=== PATIENT | female | born 1980 | race Caucasian/White ===

== ENCOUNTER 2019-07-14 09:12 | Emergency (ER) | payer OTHER, MEDICAID ==
[~2019-07-14] VITALS: Ht 167.6 cm; Wt 86.2 kg
[~2019-07-14 09:12] MED LIST: CLOTRIMAZOLE-745 GM VG; LEXAPRO 10 MG T10 MG PO; MACROBID 100 M100 M1 PO; SUBOXONE 8 MG-1 EAC1 SL; ULTRAM 50MG TAB50 MG PO; birth control
[2019-07-14] MEDS ORDERED: SUBOXONE 8 MG-1 EAC3 PO (09:27)
[2019-07-14] MEDS ORDERED: TAMIFLU75 MG PO (09:29)
[2019-07-14] MEDS ORDERED: TRAMADOL 50 MG50 MG PO (09:29)
[2019-07-14] MEDS ORDERED: ZOFRAN ODT4 MG PO (09:29)
[2019-07-14 09:41] VITALS: BP 142/83
== END 2019-07-14 09:41 | disposition home or self-care (01) ==
LOC: M.ERS 09:12
DX: J11.1 Influenza due to unidentified influenza virus with other respiratory manifestations (principal); F41.9 Anxiety disorder, unspecified; F17.210 Nicotine dependence, cigarettes, uncomplicated

== ENCOUNTER 2020-12-10 10:49 | Emergency (ER) | payer OTHER, MEDICAID ==
[~2020-12-10] VITALS: Ht 165.1 cm; Wt 90.7 kg
[~2020-12-10 10:49] MED LIST changes: +SUBOXONE 8 MG-1 EAC3 PO; +TAMIFLU75 MG PO; +TRAMADOL 50 MG50 MG PO; +ZOFRAN ODT4 MG PO
[2020-12-10 11:50] LABS: URINE BILIRUBIN NEGATIVE (Negative); URINE BLOOD NEGATIVE (Negative); URINE CLARITY CLEAR; URINE COLOR YELLOW; URINE GLUCOSE-RANDOM NEGATIVE (Negative); URINE KETONES NEGATIVE (Negative); URINE LEUKOCYTES-REFLEX NEGATIVE (Negative); URINE NITRITE-REFLEX NEGATIVE (Negative); URINE PROTEIN NEGATIVE (Negative); URINE UROBILINOGEN 0.2 E.U./dl (0.2-1.0)
[2020-12-10 11:52] LABS: ABSOLUTE EOSINOPHILS 0.3 thou/uL (0.0-0.7); ABSOLUTE LYMPHOCYTES 2.6 thou/uL (0.8-5.3); ABSOLUTE MONOCYTES 0.4 thou/uL (0.0-1.2); ABSOLUTE NEUTROPHILS 4.9 thou/uL (1.6-8.1); BASOPHILS 0.5 %; EOSINOPHILS 3.8 %; HEMATOCRIT 37.9 % (37.0-47.0); HEMOGLOBIN 12.5 gm/dL (12.0-15.0); LYMPHOCYTES 31.1 %; MCH 26.9 pg (26.0-34.0); MCV 81.6 fL (80.0-100.0); MONOCYTES 5.1 %; MPV 8.6 fl. (7.2-11.1); NUCLEATED RBCS 0 /100WBC; PLATELET COUNT* 345 thou/uL (150-400); POLYS 59.5 %; RBC 4.65 mil/uL (4.20-5.00); RDW-CV 15.3 % (10.5-14.5); WBC 8.3 thou/uL (4.0-11.0)
[2020-12-10 12:07] LABS: CREATININE 0.8 mg/dL (0.6-1.3); POTASSIUM 3.8 mmol/L (3.5-5.1)
[2020-12-10 12:12] LABS: ALBUMIN 3.8 g/dL (3.4-5.0); TOTAL BILIRUBIN 0.5 mg/dL (<0.1-1.0); TOTAL PROTEIN 8.2 g/dL (6.4-8.2)
[2020-12-10] MEDS ORDERED: ZOFRAN ODT4 MG PO (14:23)
[2020-12-10] MEDS ORDERED: IBUPROFEN 800800 M1 PO (14:23)
[2020-12-10] MEDS ORDERED: NORCO5 PO (14:23)
[2020-12-10 14:34] VITALS: BP 110/55
--- NOTE | 2020-12-10 15:33 | EKG ---
[place] [address] ELECTROCARDIOGRAM REPORT Name: RITIKAABBIE L Room: [facility]#: [id number] Admission: 12/10/20 Attend Phys: Discharge: 12/10/20 Date of : 78 Date of Service: 12/10/20 1331 Report #: [id number] THIS REPORT FOR: //name// [facility] ED Test Date: 2020-12-10 Test Time: 13:31:40 Pat Name: ABBIE YOST Department: Room: Gender: F Rn Production: : 1980 Requested By: Verna Navarro Order Number: [id number] MD: Cuauhtemoc España Measurements Intervals [place] Rate: 72 P: 60 ID: 153 QRS: 2 QRSD: 86 T: 57 QT: 437 QTc: 479 Interpretive Statements Sinus rhythm Ventricular premature complex Baseline wander in lead(s) I,III,aVR,aVL,aVF,V2,V4,V5,V6 Compared to ECG 03/16/2013 08:33:48 Ventricular premature complex(es) now present Electronically Signed On 12-10-2020 15:33:28 CDT by Cuauhtemoc España [email or web address] <ELECTRONICALLY SIGNED> By: Cuauhtemoc España MD, [facility] 12/10/20 1533 1331 1331 Cuauhtemoc España MD, [facility] /EPI
== END 2020-12-10 14:34 | disposition home or self-care (01) ==
LOC: M.ERS 10:49
PROVIDERS: Nurse Practitioner Family
DX: R10.11 Right upper quadrant pain (principal); F17.210 Nicotine dependence, cigarettes, uncomplicated; Z98.51 Tubal ligation status

== ENCOUNTER 2021-02-22 18:07 | Observation (INO) | payer OTHER, MEDICAID ==
[~2021-02-22] VITALS: Ht 165.1 cm; Wt 95.3 kg
[~2021-02-22 18:07] MED LIST changes: +IBUPROFEN 800800 M1 PO; +NORCO5 PO
[2021-02-22 18:25] VITALS: BP 127/87
[2021-02-22 21:53] LABS: URINE BLOOD NEGATIVE (Negative); URINE CLARITY CLEAR; URINE COLOR YELLOW; URINE GLUCOSE-RANDOM NEGATIVE (Negative); URINE KETONES TRACE (Negative); URINE LEUKOCYTES-REFLEX NEGATIVE (Negative); URINE NITRITE-REFLEX NEGATIVE (Negative); URINE PROTEIN TRACE (Negative); URINE SPECIFIC GRAVITY 1.025 (1.005-1.030); URINE UROBILINOGEN 0.2 E.U./dl (0.2-1.0)
[2021-02-22 21:55] LABS: URINE BILIRUBIN 1+ (Negative)
[2021-02-22 22:02] LABS: ICTOTEST (BILI CONFIRMATORY) Negative (Negative)
[2021-02-22 22:41] LABS: ABSOLUTE BASOPHILS 0.1 thou/uL (0.0-0.2); ABSOLUTE LYMPHOCYTES 1.3 thou/uL (0.8-5.3); ABSOLUTE MONOCYTES 0.5 thou/uL (0.0-1.2); ABSOLUTE NEUTROPHILS 10.8 thou/uL (1.6-8.1); BASOPHILS 0.6 %; EOSINOPHILS 0.2 %; HEMATOCRIT 40.5 % (37.0-47.0); HEMOGLOBIN 13.6 gm/dL (12.0-15.0); LYMPHOCYTES 10.4 %; MCH 27.1 pg (26.0-34.0); MCHC 33.7 g/dL (28.0-37.0); MCV 80.5 fL (80.0-100.0); MONOCYTES 4.1 %; MPV 8.4 fl. (7.2-11.1); NUCLEATED RBCS 0 /100WBC; PLATELET COUNT* 365 thou/uL (150-400); POLYS 84.7 %; RBC 5.03 mil/uL (4.20-5.00); RDW-CV 14.9 % (10.5-14.5); WBC 12.8 thou/uL (4.0-11.0)
[2021-02-22 22:48] LABS: CALCIUM 8.9 mg/dL (8.5-10.1); POTASSIUM 3.5 mmol/L (3.5-5.1)
[2021-02-22 22:53] LABS: ALBUMIN 4.3 g/dL (3.4-5.0); TOTAL BILIRUBIN 0.9 mg/dL (<0.1-1.0)
[2021-02-23 05:48] VITALS: BP 106/58
[2021-02-23 08:00] VITALS: BP 110/44
[2021-02-23 08:10] VITALS: BP 110/44
[2021-02-23 09:53] VITALS: BP 110/44
--- NOTE | 2021-02-23 17:06 | OP ---
[facility] [address] [place] [address] OPERATIVE REPORT Name: ABBIE YOST Room: [address] Carly#: [id number] Admission: 02/23/21 Attend Phys: Tao Clay Discharge: Date of : 78 Report #: [id number] THIS REPORT FOR: cc: MADELIN - No family physician/PCP FAM - No family physician/PCP Tao Clay MD ~ DATE OF SURGERY: 02/23/2021 PREOPERATIVE DIAGNOSIS: Acute appendicitis. POSTOPERATIVE DIAGNOSIS: Acute appendicitis. OPERATION: Laparoscopic appendectomy. SURGEON: Tao Clay MD. ANESTHESIA: General. ESTIMATED BLOOD LOSS: Minimal. SPECIMENS: Appendix. DESCRIPTION OF PROCEDURE: After informed consent was obtained, the patient was brought to the operating room and placed supine. SCDs were placed and working, preoperative antibiotics were administered, general anesthesia was induced. The abdomen was prepped and draped in the usual sterile fashion. A 5 mm incision was made in the left upper quadrant. A 5 mm trocar was placed under direct vision. Pneumoperitoneum was established. Left lower quadrant 5 mm trocar was placed. A right upper quadrant 10 mm trocar was placed. These were done under direct vision. The appendix was then grasped and retracted anteriorly. The mesoappendix was ligated using the LigaSure device. There was good hemostasis. Base of the appendix was then ligated using a PDS Endoloop. The appendix was cut with the LigaSure, placed into an Endopouch and removed. The ports were removed under direct vision. The fascia at the right upper quadrant was closed with a 0 Vicryl suture. Skin was then closed with 4-0 Monocryl. Incisions were dressed with Steri-Strips. COMPLICATIONS: None. DISPOSITION: The patient was taken to recovery in satisfactory condition. <ELECTRONICALLY SIGNED> By: Tao Clay MD 02/23/21 1706 0829 0838Tao Clay MD /nt
--- NOTE | 2021-02-28 11:09 | PATH ---
[address] [address] PATHOLOGY RPT PROCEDURE Name: ABBIE YOST Room: [address] Yarely Carroll#: [id number] Admission: 02/23/21 Date of : 78 Discharge: 02/23/21 Report #: [id number] Path Case #: [id number] L[facility] Accession Number: [id number] . 01 Material submitted: . appendix - APPENDIX . 01 Clinical history: . LAPAROSCOPIC APPENDECTOMY ACUTE APPENDICITIS . 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 - Acute appendicitis, periappendicitis and serositis. - See comment. . . 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 Histologic Type and Grade ___ G1, well-differentiated neuroendocrine tumor Mitotic Rate ___ Less than 2 mitoses/2 mm2 Ki-67 Labeling Index ___ Less than 3% . Tumor Extent ___ Invades the subserosa/mesoappendix without involvement of visceral peritoneum . Margins ___ Proximal margin: Involved by tumor ___ Radial or mesenteric margin: Uninvolved by tumor . Lymphovascular invasion: ___ Not identified . Perineural invasion ___ Not identified . [place] [address] PATHOLOGY RPT PROCEDURE Name: ABBIE YOST Cuca Room: [address] Yarely Carroll#: [id number] Admission: 02/23/21 Date of : 78 Discharge: 02/23/21 Report #: [id number] Path Case #: [id number] ___ No lymph nodes submitted or found . PATHOLOGIC STAGE CLASSIFICATION (pTNM, AJCC 8TH EDITION) Primary Tumor ___ pT3: Tumor more than 4 cm or with subserosal invasion or involvement of the mesoappendix Regional Lymph Nodes ___ pNX (Regional lymph nodes cannot be assessed) . Additional Pathologic Findings ___ Acute appendicitis (TAMELA/db; 02/27/2021) LBQ 02/27/2021 1549 Local . 02 Comment: The tumor is identified in the section of proximal appendix after trimming away the madonna and is therefore considered to be involved. Properly controlled immunohistochemical stains performed on A1 show the neoplastic cells to have the following results: . Synaptophysin: Positive Ki-67: Less than 2% . Discussed with Dr. Clay at approximately 1610 on 02/27/2021. A1 and A3 reviewed with Dr. Franky Alonso on 02/27/2021 who agrees with the diagnosis. (TAMELA/db; 02/27/2021) . 02 Electronically signed: . Geoff Esparza MD, Pathologist NPI- [id number] . 01 Gross description: . Fixative: Formalin Labeled: Appendix Appendix length: 6.5 cm Appendix diameter: 0.2-1.0 cm Mesoappendix: 0.8 cm Proximal margin: Stapled Serosa: Pale salinas to pink-salinas with a slight amount of overlying exudate Cut surface: Pinpoint to patent lumen Luminal diameter: Up to 0.2 cm Perforation: None identified Lesions/abnormalities: None identified . Proximal margin and bisected tip in cassette A1. Additional veterans contact representative cross-sections in cassette A2. ([facility]; 02/25/2021) [place] [address] PATHOLOGY RPT PROCEDURE Name: ABBIE YOST Room: [address] Nehemias.Maddie#: [id number] Admission: 02/23/21 Date of : 78 Discharge: 02/23/21 Report #: [id number] Path Case #: [id number] . After initial microscopic examination, the remainder of the appendix is submitted proximal to distal aspects in cassettes A3 through A5. (CAA; 02/26/2021) QAC/QAC 02/26/2021 1640 Local . 02 Pathologist provided ICD-10: C18.1, K35.80, K65.8 . 02 CPT . 614893, P88971, 231598 Specimen Comment: A courtesy copy of this report has been sent to [phone] Specimen Comment: Report sent to Performed at: [address], [place], [place] [address] MD Jose Peoples MD Phone: [phone] Performed at: 02 [facility] [address], [place], [place] [address] MD Geoff Esparza MD Phone: [phone]
== END 2021-02-23 17:04 | disposition home or self-care (01) ==
LOC: M.ERS 18:07 → M.TBA-ER 02-23 01:55
PROVIDERS: Personal Emergency Response Attendant; ADMIT Surgery; ATTEND Surgery
DX: K35.80 Unspecified acute appendicitis (principal); Z20.822 Contact with and (suspected) exposure to COVID-19; R11.2 Nausea with vomiting, unspecified; R19.7 Diarrhea, unspecified; F17.210 Nicotine dependence, cigarettes, uncomplicated; Z98.890 Other specified postprocedural states; Z79.899 Other long term (current) drug therapy

== ENCOUNTER 2021-05-17 05:30 | Inpatient (IN) | payer OTHER, MEDICAID ==
[~2021-05-17] VITALS: Ht 165.1 cm; Wt 95.3 kg
--- NOTE | ~2021-05-17 | OP ---
[facility] [address] [place] [address] OPERATIVE REPORT Name: ABBIE YOST Room: [place] [address] ADM IN M.R.#: [id number] Admission: 05/17/21 Attend Phys: Tyrone Blanchard Discharge: Date of : 78 Report #: [id number] THIS REPORT FOR: cc: FAM - No family physician/PCP FAM - No family physician/PCP Tao Clay MD ~ DATE OF SURGERY: 05/17/2021 PREOPERATIVE DIAGNOSIS: Appendiceal neuroendocrine tumor. POSTOPERATIVE DIAGNOSIS: Appendiceal neuroendocrine tumor. OPERATION: Laparoscopic right hemicolectomy. SURGEON: Tao Clay MD ANESTHESIA: General. ESTIMATED BLOOD LOSS: 20 mL SPECIMENS: Right hemicolectomy. DRAINS: None. DESCRIPTION OF PROCEDURE: After informed consent was obtained, the patient was brought to the operating room and placed supine. SCDs were placed and working, preoperative antibiotics were administered, general anesthesia was induced. The abdomen was prepped and draped in the usual sterile fashion. A 5 mm incision was made in the left upper quadrant. A 5 mm trocar was placed under direct vision. Pneumoperitoneum was established. Left lower quadrant 5 mm trocar was placed. She had adhesions to the anterior abdominal wall that were taken down with a 5 mm LigaSure device. I was then able to insert a 10 mm trocar above the umbilicus. The right colon was identified. It was grasped and retracted medially. I made an incision in the white line of Toldt. This allowed for medial mobilization of the right colon. The hepatic flexure was taken down with the LigaSure device. There was excellent hemostasis. The cecum was freed up and was also mobilized medially. At this point, the laparoscope was removed. I extended the supraumbilical incision approximately 5 cm superiorly. Fascia was incised. I was able to exteriorize the right colon through this incision after a wound protector was placed. The transverse colon was identified. It was stapled with a ADILENE blue load stapler approximately one-third [address] the way across the abdomen. The mesentery was then ligated using the LigaSure. The ileocolic vessels [place] [address] OPERATIVE REPORT Name: ABBIE YOST SONY Room: [address] IN [facility]#: [id number] Admission: 05/17/21 Attend Phys: Tyrone Blanchard Discharge: Date of : 78 Report #: [id number] a 3-0 silk suture. The 10 cm of the distal ileum were taken with the specimen. This was stapled off with a ADILENE blue load stapler as well. Specimen was then removed. A [id number] functional end-to-end anastomosis was created. The small bowel and colon were brought into apposition side to side, antiperistaltic. It was stapled with a ADILENE-75 stapler. I then stapled with the common enterocolostomy with a ADILENE blue load stapler as well. The anastomosis was placed back into the abdomen. The fascia was then closed with a running 0 PDS suture. Skin was closed with 4-0 Monocryl. Incisions were dressed with Steri-Strips and sterile gauze. Sterile dressings were applied. COMPLICATIONS: None. DISPOSITION: The patient was taken to recovery in satisfactory condition. By: 0917 0942Tao Clay MD /mony
[~2021-05-17 05:30] MED LIST changes: +NOHOMEMEDICATIONS
[2021-05-17 07:30] LABS: HEMOGLOBIN 12.8 gm/dL (12.0-15.0); MCH 26.6 pg (26.0-34.0); MCHC 33.6 g/dL (28.0-37.0); MCV 79.1 fL (80.0-100.0); MPV 9.1 fl. (7.2-11.1); RBC 4.8 mil/uL (4.20-5.00); WBC 8.3 thou/uL (4.0-11.0)
[2021-05-17 07:34] LABS: CALCIUM 8.9 mg/dL (8.5-10.1); POTASSIUM 3.6 mmol/L (3.5-5.1)
[2021-05-17 16:23] VITALS: BP 119/58
[2021-05-17 20:00] VITALS: BP 124/62
[2021-05-17 23:49] VITALS: BP 108/63
[2021-05-18 04:00] VITALS: BP 130/69
[2021-05-18 04:10] LABS: HEMATOCRIT 36.1 % (37.0-47.0); HEMOGLOBIN 11.6 gm/dL (12.0-15.0); MCH 26.2 pg (26.0-34.0); MCHC 32.2 g/dL (28.0-37.0); MCV 81.2 fL (80.0-100.0); MPV 9.2 fl. (7.2-11.1); RBC 4.44 mil/uL (4.20-5.00); RDW-CV 14.6 % (10.5-14.5); WBC 10.3 thou/uL (4.0-11.0)
[2021-05-18 04:40] LABS: CALCIUM 7.9 mg/dL (8.5-10.1); CREATININE 1.1 mg/dL (0.6-1.3); POTASSIUM 3.4 mmol/L (3.5-5.1)
--- NOTE | 2021-05-18 05:07 | NUR ---
ASSUMED PT CARE AT 1930. PT ALERT AND ORIENTED X4. STERI-STRIPS AND GAUZE TO ABDOMEN C/D/I. PT PAIN CONTOLLED WITH MORPHINE, NAUSEA WITH ZOFRAN AND ANXIETY WITH LORAZEPAM. PT REFUSED ENOXAPARIN. PT SLEPT WELL WHEN PAIN WAS CONTROLLED. CAMACHO TO DD DRAINING YELLOW URINE. CALL LIGHT IN REACH. HOURLY ROUNDING IN PROGRESS, WILL CONTINUE TO MONITOR.
[2021-05-18 08:00] VITALS: BP 122/69
[2021-05-18 08:58] LABS: MAGNESIUM 2.7 mg/dL (1.8-2.4)
[2021-05-18 16:19] VITALS: BP 116/62
[2021-05-18 19:45] VITALS: BP 99/43
--- NOTE | 2021-05-18 19:55 | NUR ---
PT UP TO BATHROOM WITH ASSISTANCE AFTER CATHETHER REMOVED. PT HAS IV FLUIDS INFUSING THROUGH LEFT WRIST SALINE LOCK . VSS AFEBRILE. WILL CONTINUE TO MONIIOR
[2021-05-19 04:11] VITALS: BP 95/47
--- NOTE | 2021-05-19 04:21 | NUR ---
PT A&O X 4. ON RA. BP SOFT. PAIN MANAGED WITH MORPHINE AND TORADOL. NO C/O NAUSEA. INCISION/DRESSING C/D/I. PT SLEPT MOST OF THE NIGHT. IVF INFUISING. CALL LIGHT WITHIN REACH. WILL CONTINUE TO MONITOR.
[2021-05-19 04:43] LABS: HEMATOCRIT 33.1 % (37.0-47.0); HEMOGLOBIN 10.8 gm/dL (12.0-15.0); MCH 26.6 pg (26.0-34.0); MCHC 32.5 g/dL (28.0-37.0); MPV 9.3 fl. (7.2-11.1); RBC 4.04 mil/uL (4.20-5.00); WBC 7.6 thou/uL (4.0-11.0)
[2021-05-19 05:18] LABS: ALBUMIN 2.6 g/dL (3.4-5.0); CALCIUM 7.5 mg/dL (8.5-10.1); CREATININE 0.9 mg/dL (0.6-1.3); MAGNESIUM 2.2 mg/dL (1.8-2.4); POTASSIUM 3.3 mmol/L (3.5-5.1); TOTAL BILIRUBIN 0.3 mg/dL (<0.1-1.0); TOTAL PROTEIN 6.1 g/dL (6.4-8.2)
[2021-05-19 08:20] VITALS: BP 114/54
[2021-05-19 15:50] VITALS: BP 92/49
--- NOTE | 2021-05-19 18:12 | NUR ---
PT UP TODAY WITH STAND BY ASST. PT DID HAVE PAIN THAT WAS RESOLVED WITH PAIN MEDS. PT HAS LT WRIST IV. PT IS A&O X4. PT DID HAVE SMALL LOOSE BM. PT IS STILL ON FULL LIQ DIET. POTASSIUM WAS 3.3 PT WAS GIVEN POTASSIUM 40 X 2HOURS LAB WILL REDRAW AT 2200. DRESSING ON ABD IS DRY AND CLEAN. PT IS RESTING IN BED WITH CALL LIGHT IN REACH.
[2021-05-19 19:45] VITALS: BP 89/42
[2021-05-20] VITALS: BP 94/46
[2021-05-20 04:17] LABS: HEMATOCRIT 33.6 % (37.0-47.0); MCHC 32.8 g/dL (28.0-37.0); MCV 82.2 fL (80.0-100.0); RBC 4.09 mil/uL (4.20-5.00); WBC 6.8 thou/uL (4.0-11.0)
--- NOTE | 2021-05-20 04:29 | NUR ---
PT A&O X 4. REFUSED LOVENOX, EDUCATION GIVEN. NORCO AND TORADOL GIVEN X 1 FOR PAIN. UP TO BR WITH SBA. NO N/V. CALL LIGHT WITHIN REACH. WILL CONTINUE TO MONITOR.
[2021-05-20 05:03] LABS: ALBUMIN 2.5 g/dL (3.4-5.0); CREATININE 0.9 mg/dL (0.6-1.3); MAGNESIUM 1.9 mg/dL (1.8-2.4); POTASSIUM 4.3 mmol/L (3.5-5.1); TOTAL BILIRUBIN 0.3 mg/dL (<0.1-1.0)
[2021-05-20 08:00] VITALS: BP 121/54
--- NOTE | 2021-05-20 15:23 | NUR ---
cm completed an assessment with the pt who indicated she lives at home with her children. pt is active and independent with care. pt has no dmes. pt denies hx with hh or snf. the poc is to adv pt's diet today, possibly dc tomorrow. there are no cm dc needs at this time.
[2021-05-20 15:55] VITALS: BP 119/58
--- NOTE | 2021-05-20 17:21 | NUR ---
PATIENT RESTING IN BED. ALERT AND ORIENTED X4. IV TO LEFT WRIST SALINE LOCKED, PATENT. INCISIONS TO ABDOMEN C/D/I. C/O ABDOMEN PAIN, HYDROCODONE X2 GIVEN. BED IN LOW/LOCKED POSITION. CALL LIGHT WITHIN REACH. NO QUESTIONS OR CONCERNS VOICED.
[2021-05-20 20:14] VITALS: BP 104/48
--- NOTE | 2021-05-21 04:57 | NUR ---
BEGINNING OF SHIFT SHE WAS ASLEEP AND I HAD TO WAKE HER UP TO DO VITALS AND ASSESS PAIN, SHE RATED 8/10 SO I GAVE HER A PRN DOSE OF NORCO AND SHE SLEPT ALL NIGHT. SHE HAD MCDONALDS AT HER BEDSIDE MOSTLY EATEN SO IT APPEARS SHE IS TOLERATING HER REGULAR DIET WELL. NO REPORTS OF ANY NAUSEA OR WORSENING OF PAIN. HER INCISION SITES ARE FREE FROM S/S OF INFECTION. SHE IS ALERT AND ON ROOM AIR. RECEIVED MEDS SCHEDULED EXCEPT LOVENOX, SHE REFUSED.
[2021-05-21 06:27] LABS: HEMATOCRIT 33.9 % (37.0-47.0); MCH 26.4 pg (26.0-34.0); MCHC 32.6 g/dL (28.0-37.0); MPV 8.7 fl. (7.2-11.1); RBC 4.18 mil/uL (4.20-5.00); RDW-CV 14.8 % (10.5-14.5); WBC 7.9 thou/uL (4.0-11.0)
[2021-05-21 06:34] LABS: CREATININE 0.9 mg/dL (0.6-1.3); MAGNESIUM 1.7 mg/dL (1.8-2.4); POTASSIUM 4.1 mmol/L (3.5-5.1)
[2021-05-21 08:00] VITALS: BP 115/61
[2021-05-21] MEDS ORDERED: HYDROCODON-ACE1 EAC7 PO (09:14)
--- NOTE | 2021-05-21 12:25 | NUR ---
Case and plan of care reviewed with physician each weekday during patient's length of stay. Plan is for DC today, No discharge needs identified. Awaiting surgeon sign off.
[2021-05-21 13:44] VITALS: BP 115/61
--- NOTE | 2021-05-21 14:44 | NUR ---
PT DISCHARGED HOME WITH ALL BELONGINGS ACCOMPANIED BY DAUGHTER. PT HAS GOOD UNDERSTANDING OF DISCHARGE INSTRUCTIONS. SALINE LOCK REMOVED HUB INTACT. PT DENIED PAIN ON DISCHARGE. PT DISMISSED HOME
--- NOTE | 2021-05-21 18:06 | PATH ---
[address] [address] PATHOLOGY RPT PROCEDURE Name: COLEEN YOST Room: [address] IN M.R.#: [id number] Admission: 05/17/21 Date of : 78 Discharge: 05/21/21 Report #: [id number] Path Case #: [id number] LCA Accession Number: [id number] . 01 Material submitted: . colon - RIGHT HEMICOLECTOMY; HISTORY OF APPENDIX MASS. Modifiers: right . 01 Clinical history: . LAPAROSCOPIC HEMICOLECTOMY (+++) APPENDIX MASS . 02 Diagnosis: Right hemicolectomy: - Segment of benign terminal ileum and colon with evidence of recent prior appendectomy including suture granuloma in region of appendiceal attachment, with no residual neoplasia. - Thirteen benign pericolic lymph nodes. (TAMELA/db; 05/21/2021) LBQ 05/21/2021 1527 Local . 02 Electronically signed: . Geoff Esparza MD, Pathologist NPI- [id number] . 01 Gross description: . The specimen is received in formalin, labeled "Coleen Yost, right hemicolectomy, history of appendix mass". Received is a right hemicolectomy specimen consisting of a segment of small bowel measuring 6.6 cm in length by 1.9 cm in diameter contiguous with a segment of cecum measuring 8.3 cm in length and ranges in diameter from 3.0-5.3 cm. Both margins are stapled closed. The serosal surface of the small bowel is pink-armendariz and glistening in appearance. The serosal surface of the colon is pink-armendariz in appearance with a slight amount of overlying adhesions near the distal margin. The attached pericolic fat measures up to 6.6 cm in thickness. The mesenteric margin is inked orange. The appendix is absent. The specimen is opened along the antimesenteric line to reveal light salinas mucosa with normal architectural folds within the small bowel. The ileocecal valve is pale salinas and lipomatous in appearance. The colonic mucosa is light salinas with normal architectural folds. No distinct nodules or lesions are noted grossly. Dissection and palpation of the attached pericolic fat reveals 13 possible lymph nodes ranging in size from 0.3-0.6 cm in maximum dimensions. The specimen is submitted representatively as follows: . A1 proximal margin, en face A2 distal margin, en face A3 perpendicular section through mesenteric margin A4-A7 [place] [address] PATHOLOGY RPT PROCEDURE Name: COLEEN YOST SONY Room: [address] IN ..#: [id number] Admission: 05/17/21 Date of : 78 Discharge: 05/21/21 Report #: [id number] Path Case #: [id number] A8 cross-sections of small bowel A9 cross-section of ileocecal valve A10 cross-sections of colonic mucosa A11-A12 intact possible lymph nodes A13-A14 one bisected lymph node in each cassette. (CAA; 05/20/2021) QAC/QAC 05/21/2021 1524 Local . 02 Pathologist provided ICD-10: R19.09 . 02 CPT . 523227 Specimen Comment: A courtesy copy of this report has been sent to [phone] Specimen Comment: [phone] Specimen Comment: Report sent to DR. JOHNSON / DR JOHNSON Specimen Comment: Report sent to Performed at: 01 [facility] [address] [facility] [address], [place], [place] [id number] MD Jose Peoples MD Phone: [phone] Performed at: [address] [facility] [address] [place] [id number] MD Geoff Esparza MD Phone: [phone]
== END 2021-05-21 14:45 | disposition home or self-care (01) | DRG 828 ==
LOC: M.PRE 05:30 → M.3W 06:15 → M.TBA 06:15 → M.PRE 07:40 → M.3W 11:30 → M.PRE 17:09 → M.3W 05-21 14:45
PROVIDERS: Anesthesiology; Internal Medicine; ADMIT Internal Medicine; ATTEND Internal Medicine
PROC: 0DTF4ZZ Resection of Right Large Intestine, Percutaneous Endoscopic Approach (ICD-10-PCS; principal; 2021-05-17)
DX: D3A.8 Other benign neuroendocrine tumors (principal); K21.9 Gastro-esophageal reflux disease without esophagitis; Z90.49 Acquired absence of other specified parts of digestive tract; F41.9 Anxiety disorder, unspecified; F17.210 Nicotine dependence, cigarettes, uncomplicated

== ENCOUNTER 2021-08-23 07:28 | Emergency (ER) | payer OTHER, MEDICAID ==
[~2021-08-23] VITALS: Ht 165.1 cm; Wt 90.7 kg
[~2021-08-23 07:28] MED LIST changes: +HYDROCODON-ACE1 EAC7 PO
[2021-08-23 08:45] LABS: ABSOLUTE LYMPHOCYTES 1.8 thou/uL (0.8-5.3); ABSOLUTE MONOCYTES 0.4 thou/uL (0.0-1.2); ABSOLUTE NEUTROPHILS 4.9 thou/uL (1.6-8.1); BASOPHILS 0.5 %; EOSINOPHILS 0.6 %; HEMATOCRIT 41.6 % (37.0-47.0); HEMOGLOBIN 13.6 gm/dL (12.0-15.0); LYMPHOCYTES 24.6 %; MCH 25.7 pg (26.0-34.0); MCHC 32.8 g/dL (28.0-37.0); MCV 78.3 fL (80.0-100.0); MONOCYTES 5.7 %; MPV 8.8 fl. (7.2-11.1); NUCLEATED RBCS 0 /100WBC; PLATELET COUNT* 258 thou/uL (150-400); POLYS 68.6 %; RBC 5.31 mil/uL (4.20-5.00); RDW-CV 14.6 % (10.5-14.5); WBC 7.2 thou/uL (4.0-11.0)
[2021-08-23 08:55] LABS: CALCIUM 8.9 mg/dL (8.5-10.1); CREATININE 0.8 mg/dL (0.6-1.3); POTASSIUM 3.9 mmol/L (3.5-5.1)
[2021-08-23 08:59] LABS: TOTAL BILIRUBIN 0.8 mg/dL (<0.1-1.0); TOTAL PROTEIN 8.4 g/dL (6.4-8.2)
[2021-08-23] MEDS ORDERED: PROMS25 WY RECTAL (11:07)
[2021-08-23 11:43] VITALS: BP 112/69
--- NOTE | 2021-08-23 14:39 | EKG ---
[place] [address] ELECTROCARDIOGRAM REPORT Name: RITIKAABBIEIMANI CARDOZA Room: [facility]#: [id number] Admission: 08/23/21 Attend Phys: Discharge: 08/23/21 Date of : 78 Date of Service: 08/23/21 0735 Report #: [id number] THIS REPORT FOR: //name// [facility] ED Test Date: 2021-08-23 Test Time: 07:35:17 Pat Name: ABBIE YOST Department: Room: Gender: Cma: : 1980 Requested By: Herber Fuentes Order Number: [id number] : Christian Rodriguez Measurements Intervals [place] Rate: 76 P: 33 MA: 147 QRS: 13 QRSD: 83 T: 78 QT: 559 QTc: 629 Interpretive Statements Sinus rhythm Prolonged QT interval Compared to ECG 12/10/2020 13:31:40 Prolonged QT interval now present Electronically Signed On 08-23-2021 14:39:06 [employer] by Christian Rodriguez [email or web address] <ELECTRONICALLY SIGNED> By: Christian Rodriguez MD, [facility] 08/23/21 1439 0735 0735 Christian Rodriguez MD, [facility] /EPI
== END 2021-08-23 11:44 | disposition home or self-care (01) ==
LOC: M.ERS 07:28
PROVIDERS: Emergency Medicine
DX: R11.2 Nausea with vomiting, unspecified (principal); R07.89 Other chest pain; F41.9 Anxiety disorder, unspecified; F32.9 Major depressive disorder, single episode, unspecified; F17.210 Nicotine dependence, cigarettes, uncomplicated; Z98.51 Tubal ligation status; Z90.49 Acquired absence of other specified parts of digestive tract; Z87.42 Personal history of other diseases of the female genital tract; Z98.890 Other specified postprocedural states